=== PATIENT | female | born 1985 | race Caucasian/White ===

== ENCOUNTER 2021-02-13 13:31 | Outpatient (CLI) | payer SELFPAY ==
[2021-02-13] VITALS (9 sets, daily range): BP systolic 97–119; BP diastolic 61–76; PULSE 71–86; TEMP 97.9–98.6
[~2021-02-13] VITALS: Ht 165.1 cm; Wt 109.0 kg
[~2021-02-13 13:31] MED LIST: BENADRYL25 M2 PO; IBU600 MG PO; INSHUMULINR SQ; MOTRIN 600600 MG/TAB PO; PERCOCET 325 MG1 TA2 PO; PRENATAL1 TA7 PO; PROMETHAZINE12.5 M5 PO; [UNRECOGNIZED DRUG - OTHER]; nuvaring
[2021-02-13] MEDS ORDERED: XANAX .25M0.25 MG/TA PO (14:47)
[2021-02-13] MEDS ORDERED: MAGNESIUM200 MG PO (14:48)
[2021-02-13] MEDS ORDERED: COMPLETE MULTI1 TAB PO (14:49)
== END 2021-02-13 14:20 | disposition home or self-care (01) ==
LOC: EUO 13:31
DX: U07.1 COVID-19 (principal); E66.9 Obesity, unspecified
CPT/HCPCS: M0247; Q0247